=== PATIENT | male | born 1995 | race Asian ===

== ENCOUNTER 2018-07-30 13:14 | Emergency (ER) | payer OTHER ==
[~2018-07-30] VITALS: Ht 175.3 cm; Wt 89.9 kg
[2018-07-30] MEDS ORDERED: SODIUM CHLORIDE FLUSH 10ML SYR IVF ONE (13:30)
[2018-07-30 14:03] LABS: ALANINE AMINOTRANSFERASE 35 U/L (12-78); ALBUMIN 4.8 g/dL (3.4-5.0); ANION GAP 10 mmol/L (5-15); BASOPHILS # (AUTO) 0.01 x10^3/uL (0-0.3); BASOPHILS % (AUTO) 0 % (0-1); CALCIUM 9.3 mg/dL (8.5-10.1); CHLORIDE 109 mmol/L (98-107); CREATININE 1.59 mg/dL (0.7-1.3); EOSINOPHILS # (AUTO) 0.02 x10^3/uL (0-0.8); EOSINOPHILS % (AUTO) 0 % (1-7); LYMPHOCYTES # (AUTO) 1.17 x10^3/uL (1-6.1); LYMPHOCYTES % (AUTO) 8 % (22-44); MD NO; MEAN CORPUSCULAR HEMOGLOBIN 31.4 pg (27.5-34.5); MEAN CORPUSCULAR HGB CONC 33.9 g/dL (33.2-36.2); MEAN CORPUSCULAR VOLUME 92.6 fL (81-97); MEAN PLATELET VOLUME 7.7 fL (7.4-10.4); MONOCYTES # (AUTO) 0.45 x10^3/uL (0-1.4); MONOCYTES % (AUTO) 3 % (2-9); NEUTROPHILS # (AUTO) 13.13 x10^3/uL (1.8-8.0); NEUTROPHILS % (AUTO) 89 % (42-75); PLATELET COUNT 282 x10^3/uL (130-400); RED BLOOD COUNT 5.28 x10^6/uL (4.38-5.82); RED CELL DISTRIBUTION WIDTH 12.7 % (9.4-14.8)
[2018-07-30 14:05] LABS: ALKALINE PHOSPHATASE 68 U/L (45-117); BILIRUBIN,TOTAL 0.5 mg/dL (0.2-1.0); TOTAL PROTEIN 8.1 g/dL (6.4-8.2)
--- NOTE | 2018-07-30 14:23 | NUR ---
ERP MANAGER: PT TO ROOM FROM LOBBY
--- NOTE | 2018-07-30 14:32 | NUR ---
PT TO ED WITH C/O L SIDED FLANK PAIN RADIATING TO FRONT. NO MED HX. MD AT BEDSIDE
[2018-07-30] MEDS ORDERED: KETOROLAC 30 MG/1 ML ONE (14:38)
[2018-07-30] MEDS ORDERED: ONDANSETRON ODT 4 MG ONE (14:38)
[2018-07-30] MEDS ORDERED: ONDANSETRON ODT 4 MG PO ONE (15:00)
[2018-07-30] MEDS ORDERED: KETOROLAC 30 MG/1 ML IM ONE (15:00)
--- NOTE | 2018-07-30 15:08 | NUR ---
US AT BEDSIDE
[2018-07-30 15:14] LABS: MICROSCOPIC INDICATED
[2018-07-30 15:32] LABS: CULTURE INDICATED? NO
[2018-07-30 16:06] VITALS: BP 117/64
== END 2018-07-30 16:09 | disposition home or self-care (01) ==
LOC: ED 15:32
DX: N13.30 Unspecified hydronephrosis (principal)
CPT/HCPCS: 36415; 76700; 80053; 81001; 83690; 85025; 96372; 99284; J1885; Q0162